=== PATIENT | female | born 1950 | race Caucasian/White ===

== ENCOUNTER 2017-09-18 18:34 | Inpatient (IN) | payer MEDICARE, OTHER ==
[2017-09-18 19:34] LABS: % EOSINOPHILS 0.6 % (0.0-5.0); LYMPHOCYTE ABSOLUTE 1.6 Th/cmm (1.5-3.0); MONOCYTE ABSOLUTE 0.5 Th/cmm (0.3-1.0); NEUTROPHILE ABSOLUTE 4.1 Th/cmm (1.8-8.0); RED CELL DISTRIBUTION WIDTH 12.7 % (11.5-20.0); WHITE BLOOD COUNT 6.2 Th/cmm (4.8-10.8)
[2017-09-18 19:36] LABS: % BASOPHILS 0.6 % (0.0-2.0); % LYMPHOCYTES 26.6 % (20.0-50.0); % MONOCYTES 8.5 % (2.0-10.0); % NEUTROPHILS 63.7 % (40.0-80.0); HEMATOCRIT 36.2 % (41.0-60); HEMOGLOBIN 12.6 gm/dL (12-16); MEAN CELL VOLUME 91.2 fl (81-100); MEAN CORPUSCULAR HEMOGLOBIN 31.6 pg (27.0-31.0); MEAN CORPUSCULAR HGB CONC 34.7 pg (28.0-36.0); MEAN PLATELET VOLUME 6.5 fl; PLATELET COUNT 301 Th/cmm (150-400); RED BLOOD COUNT 3.97 Mil/cmm (3.80-5.20)
--- NOTE | 2017-09-18 19:41 | ED Physician Chart ---
ED Chief Complaint/HPI - Patient Information Date Seen:: 09/18/17 Time Seen:: 19:00 Chief Complaint:: Agitation History of Present Illness:: onset x 2 days of agitation and aggressive behavior; no report of trauma, SIs, H /As, S/T, neck pain, C/P, SOB, cough, Abd. Pain, A/N/V/D/C, fever, chills, or urinary s/s Allergies:: Allergies Allergy/AdvReac Type Severity Reaction Status Date / Time No Known Allergies Allergy Verified 09/18/17 19:03 Vitals:: Vital Signs - 8 hr 09/18/17 19:03 Temp 98.4 F HR 69 RR 16 BP 140/60 O2 Sat % 100 Historian:: Patient, Family Member Review:: Nurse's Note Reviewed, Old Chart Reviewed ED Review of Systems - Review of Systems General/Constitutional: No fever, No chills, No weight loss, No weakness, No diaphoresis, No edema, No loss of appetite Skin: No skin lesions, No rash, No bruising Head: No headache, No light-headedness Eyes: No loss of vision, No pain, No diplopia ENT: No earache, No nasal drainage, No sore throat, No tinnitus Neck: No neck pain, No swelling, No thyromegaly, No stiffness, No mass noted Cardio Vascular: No chest pain, No palpitations, No PND, No orthopnea, No edema Pulmonary: No SOB, No cough, No sputum, No wheezing GI: No nausea, No vomiting, No diarrhea, No pain, No melena, No hematochezia, No constipation, No hematemesis G/U: No dysuria, No frequency, No hematuria, No nacturia Filling Room Operator: No vaginal discharge, No abnormal vaginal bleed, No contraction Musculoskeletal: No bone or joint pain, No back pain, No muscle pain Endocrine: No polyuria, No polydipsia Psychiatric: Prior psych history, Depression, Anxiety, No suicidal ideation, No homicidal ideation, No auditory hallucination, No visual hallucination Hematopoietic: No bruising, No lymphadenopathy Allergic/Immuno: No urticaria, No angioedema Neurological: No syncope, No focal symptoms, No weakness, No paresthesia, No headache, No seizure, No dizziness, Confusion, No vertigo ED Past Medical History - Past Medical History Obtainable: Yes Past Medical History: HTN, Dyslipidemia, Dementia Family History: HTN Social History: Non Smoker, No Alcohol, No Drug Use, Single, Care Facility Surgical History: None Psychiatricy History: Depression, Dementia Medication: Reviewed ED Physical Exam - Physical Examination General/Constitutional: Awake, Well-developed, well-nourished, Alert, No distress, GCS 15, Non-toxic appearing, Ambulatory Head: Atraumatic Eyes: Lids, conjuctiva normal, PERRL, EOMI Skin: Nl inspection, No rash, No skin lesions, No ecchymosis, Well hydrated, No lymphadenopathy ENMT: External ears, nose nl, TM canals nl, Nasal exam nl, Lips, teeth, gums nl , Oropharynx nl, Tonsils nl Neck: Nontender, Full ROM w/o pain, No JVD, No nuchal rigidity, No bruit, No mass, No stridor Respiratory: Nl effort/Exclusion, Clear to Auscultation, No Wheeze/Rhonchi/Rales Cardio Vascular: RRR, No murmur, gallop, rubs, NL S1 S2, Carotid/Femoral/Distal pulses equal bilaterally GI: No tenderness/rebounding/guarding, No organomegaly, No hernia, Normal BS's, Nondistended, No mass/bruits, No McBurney tenderness : No CVA tenderness Extremities: No tenderness or effusion, Full ROM, normal strength in all extremities, No edema, Normal digits & nails Neuro/Psych: Alert/oriented, DTR's symmetric, Normal sensory exam, Normal motor strength, Judgement/insight normal, Mood normal, Normal gait, No focal deficits Other Neuro/Psych comments:: + Psychomotor Agitation; Disoriented and Confused; no SIs; Mood/Affect: Blunt Misc: Normal back, No paraspinal tenderness ED Labs/Radiology/EKG Results - Lab Results Comments:: unremarkable - EKG Interpretations Rate & Rhythm: NSR Comments:: non-specific st-t changes ED Septic Shock - . Is Septic Shock (SBP<90, OR Lactate>4 mmol\L) present?: No - <6hrs of presentation: Vital Signs: Vital Signs - 8 hr 09/18/17 19:03 Temp 98.4 F HR 69 RR 16 BP 140/60 O2 Sat % 100 ED Reassessment (Disposition) - Reassessment Reassessment Condition:: Improved - Diagnosis Diagnosis:: Dx: Agitation; Depression; Anxiety; Medical Clearance; Psychosis; Bipolar Disorder - Aftercare/Follow up Instructions Aftercare/Follow-Up Instructions:: Counseled pt regarding lab results/diagnosis & need follow up, Counseled pt & family regarding lab results/diagnosis & need follow up - Patient Disposition Discharge/Transfer:: Acute Care w/in this hosp Admitted to:: [facility] Condition at Disposition:: Stable, Improved
[2017-09-18 19:51] LABS: ALB/GLOB RATIO 1.8 (1.0-1.8); ALBUMIN 4.4 gm/dL (3.7-5.3); ALKALINE PHOSPHATASE 55 U/L (34-104); ANION GAP 9.9 (7.0-16.0); BILIRUBIN,TOTAL 0.7 mg/dL (0.3-1.0); BUN - UREA NITROGEN 20 mg/dL (7-25); CALCIUM SERUM 9.6 mg/dL (8.6-10.3); CARBON DIOXIDE 29.9 mEq/L (21.0-31.0); CHLORIDE 100 mEq/L (98-107); CHOLESTEROL 274 mg/dL (<200); CREATININE - SERUM 0.7 mg/dL (0.6-1.2); GFR AFRICAN-AMERICAN > 60.0 ml/min (>90); GFR NON AFRICAN-AMERICAN > 60.0 ml/min; GLUCOSE 100 mg/dL (70-105); HDL -HIGH DENSITY LIPOPROTEIN 79 mg/dL (23-92); POTASSIUM SERUM 3.8 mEq/L (3.5-5.1); SGOT 26 U/L (13-39); SGPT/ALT 7 U/L (7-52); SODIUM SERUM 136 mEq/L (136-145); TOTAL PROTEIN,SERUM 6.8 gm/dL (6.0-8.3); TRIGLYCERIDES 48 mg/dL (<150)
[2017-09-18 19:57] LABS: ACETAMINOPHEN < 10.0 ug/mL (10.0-30.0); SALICYLATES (ASPIRIN) < 25.0 mg/L (30.0-100.0)
[2017-09-18 23:25] VITALS: BP 139/86
[2017-09-19] MEDS ORDERED: Pneumococcal Vaccine 0.5 mL Vial IM ONE (00:07)
[2017-09-19 19:37] LABS: A1C % 4.8 % (4.0-6.0)
--- NOTE | 2017-09-20 01:46 | Psychosocial Evaluation ---
DATE OF SERVICE: 09/19/2017 IDENTIFYING DATA: The patient is a 67-year-old woman admitted from [facility] for her increased agitation, wandering into other's rooms. CHIEF COMPLAINT: "I don't know why I have to be here." HISTORY OF PRESENT ILLNESS: This is the first psychiatric hospitalization to [facility] for this patient, who is reported to have been getting easily agitated and has been trying to getting into other people's rooms and trying to steal food. The patient is reported to be aggressive towards the other residents and the staff and trying to be redirected. The patient's sleep is noted to be poor. Appetite is also noted to be very poor. The patient is noted to be very confused at this time. The patient could not be contained at a lower level of care and hence the patient has to be brought over to the hospital. The patient's daughter happened to be there at the bedside at the time of the hospitalization. The patient at this time is noted to be extremely confused and is not able to provide much of information. PAST PSYCHIATRIC HISTORY: Details are not known. MEDICAL HISTORY: Physical examination is requested to be done by Dr. Chago Khan. SUBSTANCE ABUSE HISTORY: None. PHYSICAL OR SEXUAL ABUSE HISTORY: None. LEGAL PROBLEMS: None at this time. STRENGTH AND ASSETS: The patient is motivated. MENTAL STATUS EXAMINATION: The patient is a 67-year-old woman looking older than her stated age, superficially cooperative. Eye contact is poor. Mood is noted to be irritable. Affect is constricted. Insight and judgment at this time are noted to be very much impaired. Impulse control is noted to be poor. The patient is pacing on the unit. The patient has short-term as well as long-term memory deficits. The patient; however, is noted to be alert and awake. The patient's coping skills at this time are noted to be very poor. The patient needs to be redirected. The patient at the time of the evaluation has been on Zoloft 100 mg on a daily basis and that is going to be slowly decreased to 50 mg and the patient is going to be discontinued off of the risperidone and the patient is going to be placed on the Seroquel, which is going to be started at a lower dose and the patient is going to be monitored. DIAGNOSTIC IMPRESSION: AXIS IA: Psychotic disorder, not otherwise specified. AXIS IB. Dementia and behavioral change, secondary trait. AXIS II: None. AXIS III: As per Dr. Chago Khan. IMMEDIATE TREATMENT PLAN: The patient is going to be closely monitored with the change in the medications. The patient is going to be encouraged to participate in the groups and verbalize the concerns. Once stabilized, the patient is going to be discharged to [facility] to be followed up on an outpatient basis. JOB# [id number]
--- NOTE | 2017-09-20 08:49 | Progress Notes ---
DATE: 09/20/2017 SUBJECTIVE: Staff was spoken to. The patient is interviewed. Mood is noted to be irritable. Affect is constricted. The patient's insight and judgment are noted to be still impaired. Impulse control is noted to be poor. Coping skills are also noted to be very poor. The patient is pacing most of the time on the unit. The patient is reporting that she was not able to sleep and has not had anything to eat. The patient is very confused at this time. ASSESSMENT: The patient is still paranoid and depressed. PLAN: To continue the patient with the supportive therapy, closely monitor for her aggressive behavior. JOB# [id number]
--- NOTE | 2017-09-21 12:13 | Consultation ---
DATE OF CONSULTATION: 09/20/2017 REFERRING PHYSICIAN: Jozef Lanza MD TYPE OF CONSULTATION: Psychology. HISTORY OF PRESENT ILLNESS: The patient is a 67-year-old female. The patient is admitted from [facility]. The following is by record review and patient self report. The patient is being admitted due to increased agitation and restlessness as well as poor redirectable behavior. According to the staff at the patient's facility, the patient had become aggressive towards other residents. The patient's daughter is very involved in this patient's care. The patient presents as confused, but was able to respond to the clinical interview questions. The patient denied any suicidal ideation, plan or intention. PAST MEDICAL HISTORY: Please see history and physical by Dr. Chago Khan. PAST PSYCHIATRIC HISTORY: Records are unavailable at the time of this clinical interview. SUBSTANCE ABUSE HISTORY: The patient denies any history. PSYCHOSOCIAL HISTORY: The patient's daughter is very involved in this patient's care. The patient is a resident of a half-way facility. The patient denied any history of physical or sexual abuse. The patient denies any current legal problems. The patient did not answer questions about occupational or educational history or buddhist affiliation. The patient expects to return to her placement. MENTAL STATUS EXAMINATION: The patient appears to be her stated age. Attitude is superficially cooperative. Eye contact is poor. Speech is spontaneous. Mood is irritable. Affect is constricted. The patient's thought process shows to be confused. The patient denied any suicidal ideation, plan or intention. The patient denied any auditory or visual hallucinations. The patient's behavior has been pacing on the unit according to staff. Impulse control is limited. Concentration is poor. Sensorium is alert and oriented to person and place. The patient needs constant redirection. The patient did not participate in the memory assessment. The patient did not participate in the interpretation of proverbs. Insight is poor. Judgment is compromised. DIAGNOSTIC IMPRESSION: AXIS I: 1. Psychotic disorder, not otherwise specified. 2. Dementia with behavioral disturbance. AXIS II: Deferred. AXIS III: Per Dr. Chago Khan. TREATMENT PLAN: The patient has been seen by Dr. Lanza for psychiatric evaluation and for the management of the patient's psychotropic medications. According to the record, the patient's Zoloft has been decreased to 50 mg and the patient will be discontinued off the risperidone and titrated on Seroquel. We will provide supportive psychotherapy. We will encourage the patient to verbalize concerns versus verbally acting out. We will provide coping strategies for phase of life issues. We will provide reality orientation, reality integration. We will encourage the patient to be able to demonstrate emotional and self-regulation prior to discharge. We will continue to provide motivational enhancement for the patient to become compliant and stay compliant with all aspects of her care and treatment as well as follow through with staff direction. Thank you Dr. Lanza for this consult and the opportunity to participate in this patient's care. JOB# [id number] RAMIN
--- NOTE | 2017-09-21 18:59 | Progress Notes ---
DATE: 09/21/2017 SUBJECTIVE: Staff was spoken to. The patient is interviewed. Mood is noted to be dysphoric. The patient is confused. The patient is ____ most of the time on the unit. Insight and judgment are noted to be very much impaired. Impulse control is noted to be poor. Coping skills are noted to be very poor. The patient needs to be redirected constantly. The patient has been currently on 12.5 mg of the Seroquel, which is going to be increased to 25 mg and the patient is going to be followed up with the supportive therapy. JOB# [id number]
--- NOTE | 2017-09-22 15:46 | Progress Notes ---
DATE: 09/22/2017 PSYCHIATRIC PROGRESS NOTE SUBJECTIVE: Staff was spoken to. The patient is interviewed. Mood is noted to be dysphoric. Coping skills are noted to be poor. . The patient is very dysphoric today and has not been able to give much of information. The patient is pacing most of the time on the unit. The patient has been on sertraline 50 mg and Seroquel 25 mg at bedtime. The patient is going to be closely monitored with these medications, the patient also has been having difficult time with the memory and the patient is going to be encouraged to participate in the groups. ASSESSMENT: The patient is still depressed and demented. PLAN: To continue the patient with the supportive therapy and followup. [facility]# [id number]
[2017-09-22 18:49] LABS: URINE SOURCE RANDOM
[2017-09-22 18:50] LABS: URINE BILIRUBIN NEGATIVE (NEGATIVE); URINE BLOOD NEGATIVE (NEGATIVE); URINE GLUCOSE (UA) NEGATIVE (NEGATIVE); URINE KETONE NEGATIVE (NEGATIVE); URINE LEUKOCYTE ESTERASE NEGATIVE (NEGATIVE); URINE NITRATE NEGATIVE (NEGATIVE); URINE PROTEIN NEGATIVE (NEGATIVE); URINE UROBILINOGEN 0.2 E.U./dL (0.2 - 1.0)
[2017-09-22 18:56] LABS: URINE CLARITY CLEAR (CLEAR); URINE COLOR YELLOW
[2017-09-22 18:57] LABS: URINE MICROSCOPIC INDICATED? NO
--- NOTE | 2017-09-23 23:43 | Consultation ---
DATE OF CONSULTATION: INTERNAL MEDICINE CONSULTATION REASON FOR CONSULTATION: Hyperlipidemia, psychosis, dementia, chronic insomnia. HISTORY OF PRESENTING ILLNESS: A 67-year-old female, very aggressive behavior at a group home facility and stealing the food from other residents, so sent for further evaluation. The patient is currently in bed, family at bedside, grandson. The patient denies any headache, no chest pain, no abdominal pain. Denies any hunger at present time, "when I get hungry, I will eat." Denies any nausea, vomiting, or diarrhea. Denies leg swelling or joint swelling. No rashes. The patient denies almost any symptoms and stating that she is fine. PAST MEDICAL HISTORY: Hyperlipidemia, dementia, psychosis. ALLERGIES: None. MEDICATIONS: Currently receiving includes Aricept 10 mg once a day, Ativan 0.5 q. 4 p.r.n., Keflex 500 four times a day for 1 week, Seroquel 25 mg at bedtime, Zoloft 50 once a day, Ambien 5 mg once a day. SOCIAL HISTORY: Noncontributory. REVIEW OF SYSTEMS: See the history of presenting illness. PHYSICAL EXAMINATION: VITAL SIGNS: Height 1.68 meters, weight 58.9 kg, BMI 21, temperature 96.8, pulse 60, respiratory rate 19, blood pressure 113/59, oxygen saturation 96%. GENERAL: Well built, well developed, in no acute distress. HEENT: No icterus. No pallor. Mucosa is moist. SKIN: Turgor is normal. NECK: Supple. No JVD, bruit, or lymphadenopathy. LUNGS: Clear to auscultation. CARDIOVASCULAR: S1, S2 normal limits. No murmur, gallop, or bruit. ABDOMEN: Soft, nontender. No hepatosplenomegaly. Bowel sounds active. No CVA tenderness. EXTREMITIES: Unremarkable. CENTRAL NERVOUS SYSTEM: Cranial nerves intact, nonfocal. MUSCULOSKELETAL: No clubbing, cyanosis, or synovitis. LABORATORY TESTS: RPR is negative. Serum alcohol level not detected. Serum salicylate and acetaminophen level is not detected. Urinalysis: pH 6.0, specific gravity 1.030, leukocyte esterase negative. WBCs 6000, hemoglobin 12.6, MCV 91, platelet count of 301,000, neutrophils 64. Sodium 136, potassium 3.8, chloride 100, bicarb 29, BUN 20, creatinine 0.7, glucose of 100, calcium of 9.6. Liver panel unremarkable. Albumin normal at 4.4. TSH normal at 1.5, hemoglobin A1c normal at 4.8. Cholesterol is elevated at 274, LDL 174, HDL 79, triglycerides 48. ASSESSMENT AND PLAN: 1. Hyperlipidemia. We will start the patient on Pravachol 20 mg p.o. at bedtime and low-cholesterol diet and monitor lipid panel in 3-6 months. 2. 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 3. Psychosis. Further plan per Dr. Lanza. Currently, the patient on Seroquel, Zoloft, Ambien, Aricept, and Ativan as mentioned earlier. We will follow with you Dr. Lanza. JOB# [id number]
--- NOTE | 2017-09-24 05:16 | Progress Notes ---
DATE: 09/23/2017 SUBJECTIVE: Staff was spoken to. The patient is interviewed. Mood is noted to be irritable. Affect is constricted. The patient is pacing most of the time. The patient has been very intrusive today. The patient has been feeling very weak and staff was requested to give fluids for this patient. The patient has been not making any sense and going on a tangent. ASSESSMENT: The patient is still depressed, psychotic and demented. PLAN: To continue the patient with the supportive therapy and follow up. JOB# [id number]
[2017-09-24] MEDS ORDERED: Probiotic Screen MC PRN (09:15)
--- NOTE | 2017-09-25 02:41 | Progress Notes ---
DATE: 09/24/2017 PSYCHIATRIC PROGRESS NOTE SUBJECTIVE: Staff was spoken to. The patient is interviewed. Mood is noted to be irritable. Affect is constricted. The patient has been dysphoric and pacing most of the time on the unit. Insight and judgment at this time are noted to be still impaired. Impulse control seems to be limited. ASSESSMENT: The patient is still paranoid, depressed and confused. PLAN: To continue the patient with the supportive therapy and current medications. I encouraged the patient to verbalize the concerns rather than to act out. The patient is not ready to be discharged to a lower level of care yet. JOB# [id number]
[2017-09-25] MEDS: Lactobacillus Rhamnosus GG 15 Billion CFU CAP.SPRINK PO SCH (08:29)
--- NOTE | 2017-09-25 11:54 | Progress Notes ---
DATE: 09/25/2017 SUBJECTIVE: Staff was spoken to. The patient is interviewed. Mood is noted to be dysphoric. Coping skills are noted to be poor. The patient has been pacing on the unit. Insight and judgment at this time are noted to be still impaired. The patient has been pacing most of the time on the unit. The patient is currently on Seroquel and Zoloft and the dose of the Zoloft is going to be changed to twice a day in view of her paranoia and the patient is going to be followed up. ASSESSMENT: The patient is still depressed, psychotic and demented. PLAN: To continue the patient with the current medications and followup. JOB# [id number]
[2017-09-26] MEDS: Lactobacillus Rhamnosus GG 15 Billion CFU CAP.SPRINK PO SCH (10:11)
--- NOTE | 2017-09-27 02:46 | Progress Notes ---
DATE: 09/26/2017 SUBJECTIVE: Staff was spoken to. The patient is interviewed. Mood is noted to be irritable. Affect is constricted. The patient's insight and judgment at this time are noted to be still impaired. The patient is confused. The patient is stating that everything is taking care of her and the only thing she has to do is she has to leave this place. The patient is not making much sense. ASSESSMENT: The patient is still psychotic and demented. PLAN: To continue the patient with the supportive therapy and followup. JOB# [id number]
[2017-09-27] MEDS: Lactobacillus Rhamnosus GG 15 Billion CFU CAP.SPRINK PO SCH (09:14)
--- NOTE | 2017-09-28 04:59 | Progress Notes ---
DATE: 09/27/2017 SUBJECTIVE: Staff was spoken to. The patient is interviewed. Mood is noted to be ____ coping skills are noted to be fair, but the patient continues to be demented and paranoia is noted. No aggressive behavior is noted. The patient could be redirectable at this time. ASSESSMENT: The patient is stabilizing. PLAN: To discharge the patient today for followup on outpatient basis. JOB# [id number]
--- NOTE | 2017-09-28 09:33 | Discharge Summary ---
DATE OF DISCHARGE: 09/27/2017 IDENTIFYING DATA: The patient is a 67-year-old woman admitted from [facility] for increased agitation and wandering into others' rooms. CHIEF COMPLAINT: "I do not know why I have to be here." DIAGNOSES AT THE TIME OF ADMISSION: AXIS I: Psychotic disorder, not otherwise specified; dementia and behavioral change. AXIS II: None. AXIS III: As per Dr. Chago Khan. HISTORY OF PRESENT ILLNESS: Please refer to 09/19/2017 dictation done by me. Physical examination was done by Dr. Chago Khan and is noted to be significant for hyperlipidemia. HOSPITAL COURSE AND RESPONSE TO TREATMENT: The patient has been observed on inpatient unit, provided with supportive psychotherapy. The patient has been encouraged to participate in the groups and verbalize the concerns. In view of her psychosis, the patient has been placed on the Seroquel, which was increased gradually to 25 mg b.i.d. The patient has been placed on sertraline 50 mg in the morning. With these medications, the patient was observed and was noted to be doing fairly well. The patient was discharged on 09/27/2017 with recommendation that she is going to be seeking treatment on an outpatient basis. MENTAL STATUS EXAMINATION: At the time of discharge, the patient's mood is noted to be irritable. Affect is constricted. Insight and judgment are improving. Impulse control seemed to be fair. The patient has been noted to have short-term as well as long-term memory deficits, but the patient tends to be perseverative, but the patient is not presenting with any threats to harm self or others. DIAGNOSES AT THE TIME OF THE DISCHARGE: AXIS I: 1. Psychotic disorder, not otherwise specified. 2. Dementia and behavioral changes. AXIS II: None. AXIS III: Hyperlipidemia. AFTERCARE PLAN: The patient is discharged for followup on outpatient basis. JOB# [id number]
== END 2017-09-27 17:30 | DRG 885 ==
LOC: ER 18:34 → GERO2 20:46
PROVIDERS: ADMIT Psychiatry & Neurology Psychiatry; ATTEND Psychiatry & Neurology Psychiatry
DX: F29 Unspecified psychosis not due to a substance or known physiological condition (principal); F02.81 Dementia in other diseases classified elsewhere, unspecified severity, with behavioral disturbance; I10 Essential (primary) hypertension; E78.5 Hyperlipidemia, unspecified; F51.04 Psychophysiologic insomnia; G30.9 Alzheimer's disease, unspecified; Z82.49 Family history of ischemic heart disease and other diseases of the circulatory system
CPT/HCPCS: 36415-UA; 80053-TC; 80061-TC; 80320-TC; 80329-TC; 81003-TC; 83036-90; 84443-TC; 84484-TC; 85025-TC; 86592-TC; 90732; 93005; G0410; J2060; Z7610

== ENCOUNTER 2017-10-08 22:08 | Inpatient (IN) | payer MEDICARE, OTHER ==
--- NOTE | 2017-10-08 22:40 | ED Physician Chart ---
ED Chief Complaint/HPI - Patient Information Date Seen:: 10/08/17 Time Seen:: 22:39 Chief Complaint:: Aggressiveness History of Present Illness:: 67 yo female was brought from SNF to ER for evaluation of increased agitation and aggressiveness towards other patients at SNF. Patient is calm and following command at ER. Patient was recently hospitalized for similar symptoms at [facility] geropsych unit. Allergies:: Allergies Allergy/AdvReac Type Severity Reaction Status Date / Time No Known Allergies Allergy Verified 10/08/17 22:20 Vitals:: Vital Signs - 8 hr 10/08/17 22:10 Temp 97.7 F HR 59 RR 18 BP 137/84 O2 Sat % 97 ED Review of Systems - Review of Systems General/Constitutional: No fever Skin: No bruising Head: No headache Eyes: No pain ENT: No nasal drainage Neck: No neck pain Cardio Vascular: No chest pain Pulmonary: No cough GI: No nausea, No vomiting Musculoskeletal: No bone or joint pain Psychiatric: Prior psych history Neurological: No focal symptoms ED Past Medical History - Past Medical History Past Medical History: Dyslipidemia, Dementia, Other (UTI) Social History: Non Smoker, No Alcohol, No Drug Use Psychiatricy History: Depression, Other (psychosis, anxiety) Family Medical History - Family Member Mother History Unknown: Yes Ethnicity: Unknown Living Status: Unknown Hx Family Cancer: (unknown) Hx Family Coronary Artery Disease: (unknown) Hx Family Congestive Heart Failure: (unknown) Hx Family Hypertension: (unknown) Hx Family Stroke: (unknown) Hx Family Diabetes: (unknown) Hx Family Seizures: (unknown) Hx Family Dementia: (unknown) Hx Family AIDS: (unknown) Hx Family COPD: (unknown) Hx Family Hepatitis: (unknown) Hx Family Psychiatric Problems: (unknown) Hx Family Tuberculosis: (unknown) ED Physical Exam - Physical Examination General/Constitutional: Awake, Alert Head: Atraumatic Eyes: PERRL Skin: No ecchymosis ENMT: Nasal exam nl Neck: No nuchal rigidity Respiratory: No Wheeze/Rhonchi/Rales Cardio Vascular: RRR, No murmur, gallop, rubs, NL S1 S2 GI: No tenderness/rebounding/guarding Extremities: normal strength in all extremities Other Neuro/Psych comments:: Alert, oriented to self and place ED Labs/Radiology/EKG Results - Lab Results Results: Laboratory Last Values WBC 6.0 Th/cmm (4.8-10.8) 10/08/17 22:50 RBC 4.08 Mil/cmm (3.80-5.20) 10/08/17 22:50 Hgb 12.8 gm/dL (12-16) 10/08/17 22:50 Hct 37.5 % (41.0-60) L 10/08/17 22:50 MCV 91.9 fl (81-100) 10/08/17 22:50 MCH 31.4 pg (27.0-31.0) H 10/08/17 22:50 MCHC Differential 34.1 pg (28.0-36.0) 10/08/17 22:50 RDW 13.0 % (11.5-20.0) 10/08/17 22:50 Plt Count 264 Th/cmm (150-400) 10/08/17 22:50 MPV 6.8 fl 10/08/17 22:50 Neutrophils % 66.1 % (40.0-80.0) 10/08/17 22:50 Lymphocytes % 27.3 % (20.0-50.0) 10/08/17 22:50 Monocytes % 5.5 % (2.0-10.0) 10/08/17 22:50 Eosinophils % 1.0 % (0.0-5.0) 10/08/17 22:50 Basophils % 0.1 % (0.0-2.0) 10/08/17 22:50 Sodium 139 mEq/L (136-145) 10/08/17 22:50 Potassium 3.6 mEq/L (3.5-5.1) 10/08/17 22:50 Chloride 105 mEq/L (98-107) 10/08/17 22:50 Carbon Dioxide 28.5 mEq/L (21.0-31.0) 10/08/17 22:50 Anion Gap 9.1 (7.0-16.0) 10/08/17 22:50 BUN 16 mg/dL (7-25) 10/08/17 22:50 Creatinine 0.7 mg/dL (0.6-1.2) 10/08/17 22:50 Est GFR ( Amer) > 60.0 ml/min (>90) 10/08/17 22:50 Est GFR (Non-Af Amer) > 60.0 ml/min 10/08/17 22:50 BUN/Creatinine Ratio 22.9 10/08/17 22:50 Glucose 96 mg/dL (70-105) 10/08/17 22:50 Calcium 9.5 mg/dL (8.6-10.3) 10/08/17 22:50 Magnesium 2.2 mg/dL (1.9-2.7) 10/08/17 22:50 Total Bilirubin 0.5 mg/dL (0.3-1.0) 10/08/17 22:50 AST 21 U/L (13-39) 10/08/17 22:50 ALT 9 U/L (7-52) 10/08/17 22:50 Alkaline Phosphatase 58 U/L (34-104) 10/08/17 22:50 Troponin I < 0.01 ng/mL (0.01-0.05) L 10/08/17 22:50 B-Natriuretic Peptide 117.0 pg/mL (5.0-100.0) H 10/08/17 22:50 Total Protein 6.4 gm/dL (6.0-8.3) 10/08/17 22:50 Albumin 4.2 gm/dL (3.7-5.3) 10/08/17 22:50 Globulin 2.2 gm/dL 10/08/17 22:50 Albumin/Globulin Ratio 1.9 (1.0-1.8) H 10/08/17 22:50 - Radiology Results Results: CXR: increased lung markings, no focal consolidation ED Assessment - Assessment General Assessment: Hyperlipidemia Dementia Psychosis ED Septic Shock - . Is Septic Shock (SBP<90, OR Lactate>4 mmol\L) present?: No - <6hrs of presentation: Vital Signs: Vital Signs - 8 hr 10/08/17 22:10 Temp 97.7 F HR 59 RR 18 BP 137/84 O2 Sat % 97 ED Reassessment (Disposition) - Reassessment Reassessment Condition:: Unchanged - Patient Disposition Discharge/Transfer:: Nathaniel w/in this hosp Admitting Medical Physician:: Shelli Cortez Admitting Psych Physician:: Jozef Lanza ED Discharge Plan - Patient Disposition Admit/Discharge/Transfer: Other Care w/in this hosp Condition at Disposition: Guarded
[2017-10-08 23:06] LABS: % BASOPHILS 0.1 % (0.0-2.0); % LYMPHOCYTES 27.3 % (20.0-50.0); % MONOCYTES 5.5 % (2.0-10.0); % NEUTROPHILS 66.1 % (40.0-80.0); EOSINOPHILE ABSOLUTE 0.1 Th/cmm (0.1-0.4); HEMATOCRIT 37.5 % (41.0-60); HEMOGLOBIN 12.8 gm/dL (12-16); LYMPHOCYTE ABSOLUTE 1.6 Th/cmm (1.5-3.0); MEAN CELL VOLUME 91.9 fl (81-100); MEAN CORPUSCULAR HEMOGLOBIN 31.4 pg (27.0-31.0); MEAN CORPUSCULAR HGB CONC 34.1 pg (28.0-36.0); MEAN PLATELET VOLUME 6.8 fl; MONOCYTE ABSOLUTE 0.3 Th/cmm (0.3-1.0); PLATELET COUNT 264 Th/cmm (150-400); RED BLOOD COUNT 4.08 Mil/cmm (3.80-5.20)
[2017-10-08 23:23] LABS: ALB/GLOB RATIO 1.9 (1.0-1.8); ALBUMIN 4.2 gm/dL (3.7-5.3); ALKALINE PHOSPHATASE 58 U/L (34-104); ANION GAP 9.1 (7.0-16.0); BILIRUBIN,TOTAL 0.5 mg/dL (0.3-1.0); BUN - UREA NITROGEN 16 mg/dL (7-25); CALCIUM SERUM 9.5 mg/dL (8.6-10.3); CARBON DIOXIDE 28.5 mEq/L (21.0-31.0); CHLORIDE 105 mEq/L (98-107); CREATININE - SERUM 0.7 mg/dL (0.6-1.2); GFR AFRICAN-AMERICAN > 60.0 ml/min (>90); GFR NON AFRICAN-AMERICAN > 60.0 ml/min; GLUCOSE 96 mg/dL (70-105); MAGNESIUM 2.2 mg/dL (1.9-2.7); POTASSIUM SERUM 3.6 mEq/L (3.5-5.1); SGOT 21 U/L (13-39); SGPT/ALT 9 U/L (7-52); SODIUM SERUM 139 mEq/L (136-145); TOTAL PROTEIN,SERUM 6.4 gm/dL (6.0-8.3)
[2017-10-09] MEDS ORDERED: Magnesium Hydroxide (MOM) 30 mL UDC PO PRN (02:23)
[2017-10-09] MEDS ORDERED: Maalox 30 mL Cup PO PRN (02:23)
[2017-10-09 03:10] VITALS: BP 114/62
--- NOTE | 2017-10-09 08:06 | Diagnostic Imaging Report ---
CHEST X-RAY: AP view INDICATION: Shortness of breath COMPARISON: None FINDINGS: Increased interstitial lung markings are noted. There is no focal consolidation or pleural effusions The heart is normal in size. Old left rib fractures are noted. IMPRESSION: Increased interstitial lung markings suggestive of chronic lung changes. No focal consolidation or evidence of sergio CHF.
[2017-10-09] MEDS ORDERED: Non-Formulary Item 1 EA (Zinc Sulfate [Zinc Sulfate] 220 MG) PO SCH (09:00)
[2017-10-09] MEDS ORDERED: Non-Formulary Item 1 EA (Amino Acids/Protein Hydrolys [Pro-Stat Awc Liquid] 30 ML) PO SCH (09:00)
[2017-10-09] MEDS: Multivitamin Tab PO SCH (18:16)
[2017-10-09] MEDS: Lactobacillus Rhamnosus GG 15 Billion CFU CAP.SPRINK PO SCH (18:16)
--- NOTE | 2017-10-10 03:24 | Psychosocial Evaluation ---
DATE OF SERVICE: 10/09/2017 PSYCHIATRIC EVALUATION AND MENTAL STATUS EXAMINATION IDENTIFYING DATA: The patient is a 67-year-old woman, resident of a nursing home facility. Information is obtained by directly interviewing the patient as well as reviewing the admission papers and they are reliable. The patient has been admitted over here for acute agitation. The patient was discharged recently from the hospital and was placed in [facility]. The patient is reported to have been getting easily agitated and aggressive towards other patients at the nursing home facility. The patient could not be redirected and hence, the patient has to be brought over here for stabilization. PAST PSYCHIATRIC HISTORY: Please note that the patient had been hospitalized here in the month of August and has been stabilized on Seroquel and Zoloft and has been discharged for followup on outpatient basis. MEDICAL HISTORY: Physical examination is requested to be done by Dr. Cortez. SUBSTANCE ABUSE HISTORY: None. PHYSICAL AND SEXUAL ABUSE HISTORY: None. LEGAL PROBLEMS: None at this time. STRENGTH AND ASSETS: The patient is motivated. MENTAL STATUS EXAMINATION: The patient is a 67-year-old woman, looking her stated age, thin built, superficially cooperative. The patient is not making any sense. The patient is very intrusive and has been pacing on the unit. The patient needs to be redirected. Short and long-term memory are noted to be very much impaired. The patient has been going on a tangent. The patient is confabulating. The patient has no insight into her illness. The patient is pacing on the unit at this time. The patient is reported to be very aggressive and agitated and has been trying to hurt other patients and hence, the patient has to be brought over here for stabilization since she was not able to be taken care of at a lower level of care. The patient's behavior is a clear danger to others. The patient's short and long-term memory are noted to be very poor. DIAGNOSTIC IMPRESSION: AXIS I: A. Psychosis, not otherwise specified. B. Dementia and behavioral change, secondary trait. AXIS II: None. AXIS III: As per Dr. Cortez. IMMEDIATE TREATMENT PLAN: The patient is going to be observed on the inpatient unit provided with supportive psychotherapy. The patient is going to be restarted on the medications. ESTIMATED LENGTH OF STAY: 3-5 days. DISCHARGE CRITERIA: When the patient is no longer a threat to self or others and be able to cope up with the stress. JOB# [id number]
[2017-10-10] MEDS: Lactobacillus Rhamnosus GG 15 Billion CFU CAP.SPRINK PO SCH (10:00)
[2017-10-10] MEDS: Multivitamin Tab PO SCH (10:01)
--- NOTE | 2017-10-10 14:20 | Progress Notes ---
DATE: 10/10/2017 SUBJECTIVE: Staff was spoken to. The patient is interviewed. Mood is noted to be irritable. Affect is constricted. The patient's insight and judgment are noted to be impaired. Impulse control is noted to be poor. The patient is grossly psychotic and is not able to contract for safety. ASSESSMENT: The patient is going to be still grossly psychotic. PLAN: To continue the patient on the Seroquel and sertraline and follow the patient up. JOB# [id number]
--- NOTE | 2017-10-10 16:44 | History & Physical ---
ADMIT DATE: 10/09/2017 HISTORY OF PRESENT ILLNESS: The patient came because of the aggressiveness. The patient came from the intermediate because she was agitated and very aggressive. The patient had a ER consultation and then ER cleared up for admission to [facility]. The patient is known to have history of hyperlipidemia and dementia in the past. PHYSICAL EXAMINATION: GENERAL: The patient otherwise normal. HEAD: Normal. ENT: Normal. NECK: Supple, nontender. LUNGS: Clear. CARDIOVASCULAR SYSTEM: S1, S2 heard. ABDOMEN: Soft. Bowel sounds are heard. CENTRAL NERVOUS SYSTEM: The patient was confused. DIAGNOSES: Psychosis, agitation, hyperlipidemia, dementia. PLAN: I will follow her medically. I will follow along with Dr. Lanza. JOB# [id number]
[2017-10-11] MEDS: Multivitamin Tab PO SCH (08:45)
[2017-10-11] MEDS: Lactobacillus Rhamnosus GG 15 Billion CFU CAP.SPRINK PO SCH (08:45)
--- NOTE | 2017-10-11 22:19 | General Progress Note ---
Subjective - Review of Systems Service Date: 10/11/17 Subjective: awake confused Objective - Results Result Diagrams: 10/08/17 22:50 10/08/17 22:50 Recent Labs: Laboratory Last Values WBC 6.0 Th/cmm (4.8-10.8) 10/08/17 22:50 RBC 4.08 Mil/cmm (3.80-5.20) 10/08/17 22:50 Hgb 12.8 gm/dL (12-16) 10/08/17 22:50 Hct 37.5 % (41.0-60) L 10/08/17 22:50 MCV 91.9 fl (81-100) 10/08/17 22:50 MCH 31.4 pg (27.0-31.0) H 10/08/17 22:50 MCHC Differential 34.1 pg (28.0-36.0) 10/08/17 22:50 RDW 13.0 % (11.5-20.0) 10/08/17 22:50 Plt Count 264 Th/cmm (150-400) 10/08/17 22:50 MPV 6.8 fl 10/08/17 22:50 Neutrophils % 66.1 % (40.0-80.0) 10/08/17 22:50 Lymphocytes % 27.3 % (20.0-50.0) 10/08/17 22:50 Monocytes % 5.5 % (2.0-10.0) 10/08/17 22:50 Eosinophils % 1.0 % (0.0-5.0) 10/08/17 22:50 Basophils % 0.1 % (0.0-2.0) 10/08/17 22:50 Sodium 139 mEq/L (136-145) 10/08/17 22:50 Potassium 3.6 mEq/L (3.5-5.1) 10/08/17 22:50 Chloride 105 mEq/L (98-107) 10/08/17 22:50 Carbon Dioxide 28.5 mEq/L (21.0-31.0) 10/08/17 22:50 Anion Gap 9.1 (7.0-16.0) 10/08/17 22:50 BUN 16 mg/dL (7-25) 10/08/17 22:50 Creatinine 0.7 mg/dL (0.6-1.2) 10/08/17 22:50 Est GFR ( Amer) > 60.0 ml/min (>90) 10/08/17 22:50 Est GFR (Non-Af Amer) > 60.0 ml/min 10/08/17 22:50 BUN/Creatinine Ratio 22.9 10/08/17 22:50 Glucose 96 mg/dL (70-105) 10/08/17 22:50 Calcium 9.5 mg/dL (8.6-10.3) 10/08/17 22:50 Magnesium 2.2 mg/dL (1.9-2.7) 10/08/17 22:50 Total Bilirubin 0.5 mg/dL (0.3-1.0) 10/08/17 22:50 AST 21 U/L (13-39) 10/08/17 22:50 ALT 9 U/L (7-52) 10/08/17 22:50 Alkaline Phosphatase 58 U/L (34-104) 10/08/17 22:50 Troponin I < 0.01 ng/mL (0.01-0.05) L 10/08/17 22:50 B-Natriuretic Peptide 117.0 pg/mL (5.0-100.0) H 10/08/17 22:50 Total Protein 6.4 gm/dL (6.0-8.3) 10/08/17 22:50 Albumin 4.2 gm/dL (3.7-5.3) 10/08/17 22:50 Globulin 2.2 gm/dL 10/08/17 22:50 Albumin/Globulin Ratio 1.9 (1.0-1.8) H 10/08/17 22:50 - Physical Exam Vitals and I&O: Vital Signs Temp 98.1 F 10/11/17 19:57 Pulse 80 10/11/17 19:57 Resp 18 10/11/17 19:57 BP 106/61 10/11/17 19:57 Pulse Ox 99 10/11/17 19:57 Intake & Output 10/11/17 10/11/17 10/12/17 06:59 18:59 06:59 Intake Total 500 Balance 500 Intake: Oral 500 Other: # Voids 3 # Bowel Movements 0 Active Medications: Current Medications Acetaminophen (Tylenol) 650 mg PO Q4HR PRN PRN Reason: Mild Pain / Temp above 100 Stop: 12/08/17 02:22 Al Hydrox/Mg Hydrox/Simethicone (Maalox) 30 ml PO Q4HR PRN PRN Reason: GI DISTRESS Stop: 12/08/17 02:22 Ascorbic Acid (Vitamin C) 500 mg PO DAILY ZEUS Stop: 12/08/17 08:59 Last Admin: 10/11/17 08:45 Dose: 500 mg Donepezil HCl (Aricept) 10 mg PO HS ZEUS Stop: 12/08/17 20:59 Last Admin: 10/11/17 21:33 Dose: 10 mg Lactobacillus Rhamnosus (Culturelle 15b) 1 each PO DAILY ZEUS Stop: 12/08/17 08:59 Last Admin: 10/11/17 08:45 Dose: 1 each Lorazepam (Ativan) 0.5 mg PO Q4HR PRN; Protocol PRN Reason: Anxiety/agitation Stop: 11/08/17 02:22 Last Admin: 10/10/17 17:39 Dose: 0.5 mg Magnesium Hydroxide (Milk Of Magnesia) 30 ml PO HS PRN PRN Reason: Constipation Multivitamins/Vitamin C (Theragran) 1 tab PO DAILY ZEUS Stop: 12/08/17 08:59 Last Admin: 10/11/17 08:45 Dose: 1 tab Quetiapine Fumarate (Seroquel) 25 mg PO BID [facility]; Protocol Stop: 12/08/17 08:59 Last Admin: 10/11/17 16:52 Dose: 25 mg Sertraline HCl (Zoloft) 50 mg PO DAILY [facility]; Protocol Stop: 12/08/17 08:59 Last Admin: 10/11/17 08:46 Dose: 50 mg Simvastatin (Zocor) 10 mg PO HS [facility]; Protocol Stop: 12/08/17 20:59 Last Admin: 10/11/17 21:33 Dose: 10 mg Zinc Sulfate (Zinc Sulfate) 220 mg PO DAILY [facility]EUS Stop: 12/08/17 08:59 Last Admin: 10/11/17 08:45 Dose: 220 mg Zolpidem Tartrate (Ambien) 5 mg PO HS PRN PRN Reason: Insomnia Stop: 12/08/17 02:22 Last Admin: 10/10/17 21:00 Dose: 5 mg General: Alert, No acute distress HEENT: Atraumatic Neck: Supple Cardiovascular: Regular rate, Normal S1 Lungs: Clear to auscultation Abdomen: Bowel sounds Assessment/Plan - Assessment Assessment: agitation dementia hypercholesteremia
--- NOTE | 2017-10-12 01:56 | Consultation ---
DATE OF CONSULTATION: 10/11/2017 REFERRING PHYSICIAN: Jozef Lanza MD TYPE OF CONSULTATION: Psychology. HISTORY OF PRESENT ILLNESS: The patient is a 67-year-old female. The patient is a resident of a half-way facility [facility]. The patient is known to this advertising copy writer from a previous hospitalization. The following is by record review and by the patient's self-report. The patient was discharged from this hospital to [facility]. According to the staff, the patient was easily agitated and aggressive towards other residents. The patient was unredirectable and therefore readmitted here for stabilization. The patient denied any suicidal ideation or any homicidal ideation, plan or intention. PAST MEDICAL HISTORY: Please see history and physical by Dr. Cortez. PAST PSYCHIATRIC HISTORY: The patient has had multiple previous hospitalizations. The patient's most recent admission at [facility] was in 08/2017. The patient is seen by a psychiatrist and possibly by a psychologist at her half-way facility. SUBSTANCE ABUSE HISTORY: None. PSYCHOSOCIAL HISTORY: The patient did not answer any of the questions about occupational history, educational history, evangelical affiliation, legal problems or physical or sexual abuse history. MENTAL STATUS EXAMINATION: The patient appears to be her stated age. The patient's attitude is superficially cooperative. Eye contact is poor. Speech is rambling. The patient is not making any sense. The patient's mood is irritable. Affect is constricted. The patient's behavior is intrusive on the unit. The patient is pacing and needs constant redirection. The patient did not participate in the memory assessment. Impulse control is poor. Concentration is poor. Sensorium is alert and oriented to person and place. The patient did not participate in the interpretation of proverbs. The patient's behavior is easily agitated and aggressive. Insight into her illness is severely compromised. Judgment is impaired. DIAGNOSTIC IMPRESSION: AXIS I: 1. Psychotic disorder, not otherwise specified. 2. Dementia with behavioral disturbance. AXIS II: Deferred. AXIS III: Per Dr. Cortez. TREATMENT PLAN: The patient has been seen by Dr. Lanza for psychiatric evaluation and for the management of the patient's psychotropic medications. We will provide supportive psychotherapy to include limit setting and de-escalation. We will provide reality orientation, differentiation and integration. We will provide coping strategies for phase of life issues. We will provide cognitive and behavioral redirection. We will provide motivational enhancement for the patient to become compliant and stay compliant with all aspects of her care and treatment. We will encourage the patient to be able to demonstrate emotional and self-regulation prior to discharge. We will also provide stress management to increase the patient's frustration tolerance. DISCHARGE CRITERIA: This should include that the patient is able to demonstrate that she is no longer a threat to self or others. Thank you Dr. Lanza for this consult and the opportunity to participate with you in this patient's care. JOB# [id number] MTDRon
--- NOTE | 2017-10-12 03:14 | Progress Notes ---
DATE: 10/11/2017 SUBJECTIVE: Staff was spoken to. The patient is interviewed. Mood is noted to be irritable. Affect is constricted. Insight and judgment at this time are noted to be still impaired. Impulse control is noted to be poor. Coping skills are also noted to be very poor. The patient is pacing on the unit. The patient is still very confused. No side effects to the medications are noted. ASSESSMENT: The patient is still paranoid and demented. PLAN: To continue the patient with the supportive therapy and followup. JOB# [id number]
[2017-10-12] MEDS: Multivitamin Tab PO SCH (08:42)
[2017-10-12] MEDS: Lactobacillus Rhamnosus GG 15 Billion CFU CAP.SPRINK PO SCH (08:42)
--- NOTE | 2017-10-12 18:07 | Progress Notes ---
DATE: 10/12/2017 SUBJECTIVE: Staff was spoken to. The patient is interviewed. Mood is noted to be anxious. The patient's daughter has been mentioning that the patient has a kind heart to go and help other people and that is being construed as being disruptive and the patient is being closely monitored over here. The patient has been able to comply with the medications so far. The patient, however, is noted to be getting confused towards the end of the day. The patient is currently on 25 mg of the Seroquel and has been able to tolerate the medication. ASSESSMENT: The patient is still confused. PLAN: To continue the patient with the supportive therapy and followup. JOB# [id number]
--- NOTE | 2017-10-12 20:20 | Progress Notes ---
DATE: 10/12/2017 SUBJECTIVE: The patient was seen in her room. The patient appears to be calm, episodes of irritability, tends to be forgetful. Otherwise, the patient appears to be in no acute distress. OBJECTIVE: VITAL SIGNS: Temperature 97, heart rate of 66, respiration 17, blood pressure 107/71, 99% on room air. HEENT: Head is atraumatic and normocephalic. Eyes: Bilateral conjunctivae are clear. Bilateral pupils are equally round and reactive. NECK: Supple. No JVD. CARDIOVASCULAR: S1 and S2, without murmur. PULMONARY: Clear to auscultation. GASTROINTESTINAL: Soft and nontender without guarding. Positive bowel sounds. MUSCULOSKELETAL: No clubbing. No cyanosis noted. ASSESSMENT: 1. Psychosis. 2. Dementia. 3. Hyperlipidemia. 4. Osteoarthritis. PLAN: We will keep the patient inpatient in senior mental health unit. We will follow up with the psychiatrist to monitor the patient's condition and behavior. Treatment plans were discussed with the patient's nurse. Treatment plans were discussed with Dr. Cortez. JOB# [id number]
[2017-10-13] MEDS: Multivitamin Tab PO SCH (09:47)
[2017-10-13] MEDS: Lactobacillus Rhamnosus GG 15 Billion CFU CAP.SPRINK PO SCH (09:47)
--- NOTE | 2017-10-13 13:41 | General Progress Note ---
Subjective - Review of Systems Events since last encounter: episodes of confusion no distress Subjective: awake confused Objective - Results Result Diagrams: 10/08/17 22:50 10/08/17 22:50 Recent Labs: Laboratory Last Values WBC 6.0 Th/cmm (4.8-10.8) 10/08/17 22:50 RBC 4.08 Mil/cmm (3.80-5.20) 10/08/17 22:50 Hgb 12.8 gm/dL (12-16) 10/08/17 22:50 Hct 37.5 % (41.0-60) L 10/08/17 22:50 MCV 91.9 fl (81-100) 10/08/17 22:50 MCH 31.4 pg (27.0-31.0) H 10/08/17 22:50 MCHC Differential 34.1 pg (28.0-36.0) 10/08/17 22:50 RDW 13.0 % (11.5-20.0) 10/08/17 22:50 Plt Count 264 Th/cmm (150-400) 10/08/17 22:50 MPV 6.8 fl 10/08/17 22:50 Neutrophils % 66.1 % (40.0-80.0) 10/08/17 22:50 Lymphocytes % 27.3 % (20.0-50.0) 10/08/17 22:50 Monocytes % 5.5 % (2.0-10.0) 10/08/17 22:50 Eosinophils % 1.0 % (0.0-5.0) 10/08/17 22:50 Basophils % 0.1 % (0.0-2.0) 10/08/17 22:50 Sodium 139 mEq/L (136-145) 10/08/17 22:50 Potassium 3.6 mEq/L (3.5-5.1) 10/08/17 22:50 Chloride 105 mEq/L (98-107) 10/08/17 22:50 Carbon Dioxide 28.5 mEq/L (21.0-31.0) 10/08/17 22:50 Anion Gap 9.1 (7.0-16.0) 10/08/17 22:50 BUN 16 mg/dL (7-25) 10/08/17 22:50 Creatinine 0.7 mg/dL (0.6-1.2) 10/08/17 22:50 Est GFR ( Amer) > 60.0 ml/min (>90) 10/08/17 22:50 Est GFR (Non-Af Amer) > 60.0 ml/min 10/08/17 22:50 BUN/Creatinine Ratio 22.9 10/08/17 22:50 Glucose 96 mg/dL (70-105) 10/08/17 22:50 Calcium 9.5 mg/dL (8.6-10.3) 10/08/17 22:50 Magnesium 2.2 mg/dL (1.9-2.7) 10/08/17 22:50 Total Bilirubin 0.5 mg/dL (0.3-1.0) 10/08/17 22:50 AST 21 U/L (13-39) 10/08/17 22:50 ALT 9 U/L (7-52) 10/08/17 22:50 Alkaline Phosphatase 58 U/L (34-104) 10/08/17 22:50 Troponin I < 0.01 ng/mL (0.01-0.05) L 10/08/17 22:50 B-Natriuretic Peptide 117.0 pg/mL (5.0-100.0) H 10/08/17 22:50 Total Protein 6.4 gm/dL (6.0-8.3) 10/08/17 22:50 Albumin 4.2 gm/dL (3.7-5.3) 10/08/17 22:50 Globulin 2.2 gm/dL 10/08/17 22:50 Albumin/Globulin Ratio 1.9 (1.0-1.8) H 10/08/17 22:50 - Physical Exam Vitals and I&O: Vital Signs Temp 97.8 F 10/13/17 04:42 Pulse 86 10/13/17 08:00 Resp 20 10/13/17 04:42 BP 115/81 10/13/17 04:42 Pulse Ox 91 10/13/17 04:42 Intake & Output 10/12/17 10/13/17 10/13/17 18:59 06:59 18:59 Intake Total 900 240 Balance 900 240 Intake: Oral 900 240 Other: # Voids 1 2 # Bowel Movements 0 Active Medications: Current Medications Acetaminophen (Tylenol) 650 mg PO Q4HR PRN PRN Reason: Mild Pain / Temp above 100 Stop: 12/08/17 02:22 Al Hydrox/Mg Hydrox/Simethicone (Maalox) 30 ml PO Q4HR PRN PRN Reason: GI DISTRESS Stop: 12/08/17 02:22 Ascorbic Acid (Vitamin C) 500 mg PO DAILY [facility]EUS Stop: 12/08/17 08:59 Last Admin: 10/13/17 09:47 Dose: 500 mg Donepezil HCl (Aricept) 10 mg PO HS [facility] Stop: 12/08/17 20:59 Last Admin: 10/12/17 20:54 Dose: 10 mg Lactobacillus Rhamnosus (Culturelle 15b) 1 each PO DAILY [facility] Stop: 12/08/17 08:59 Last Admin: 10/13/17 09:47 Dose: 1 each Lorazepam (Ativan) 0.5 mg PO Q4HR PRN; Protocol PRN Reason: Anxiety/agitation Stop: 11/08/17 02:22 Last Admin: 10/13/17 01:04 Dose: 0.5 mg Magnesium Hydroxide (Milk Of Magnesia) 30 ml PO HS PRN PRN Reason: Constipation Multivitamins/Vitamin C (Theragran) 1 tab PO DAILY [facility]EUS Stop: 12/08/17 08:59 Last Admin: 10/13/17 09:47 Dose: 1 tab Quetiapine Fumarate (Seroquel) 25 mg PO BID [facility]; Protocol Stop: 12/08/17 08:59 Last Admin: 10/13/17 09:47 Dose: 25 mg Sertraline HCl (Zoloft) 50 mg PO DAILY [facility]; Protocol Stop: 12/08/17 08:59 Last Admin: 10/13/17 09:47 Dose: 50 mg Simvastatin (Zocor) 10 mg PO HS [facility]; Protocol Stop: 12/08/17 20:59 Last Admin: 10/12/17 20:54 Dose: 10 mg Zinc Sulfate (Zinc Sulfate) 220 mg PO DAILY [facility]EUS Stop: 12/08/17 08:59 Last Admin: 10/13/17 09:47 Dose: 220 mg Zolpidem Tartrate (Ambien) 5 mg PO HS PRN PRN Reason: Insomnia Stop: 12/08/17 02:22 Last Admin: 10/12/17 20:55 Dose: 5 mg General: Alert, No acute distress HEENT: Atraumatic Neck: Supple Cardiovascular: Regular rate, Normal S1 Lungs: Clear to auscultation Abdomen: Bowel sounds Assessment/Plan - Problem List Patient Problems: All Active Problems Dementia (Acute) F03.90 Hyperlipidemia (Acute) E78.5 Osteoarthritis (Acute) M19.90 Psychosis (Acute) F29 - Assessment Assessment: agitation dementia hypercholesteremia - Plan Plan: as per psych will monitor
--- NOTE | 2017-10-13 21:14 | Progress Notes ---
DATE: 10/13/2017 SUBJECTIVE: Staff was spoken to. The patient is interviewed. Mood is noted to be anxious. Coping skills are noted to be improving at this time. The patient is, however, having the sundowning symptoms and the patient's daughter happened to be there by the bedside and the daughter is mentioning that the previous placement, possibly is not going to be willing to take her back and hence the patient is going to be closely monitored and the case management coordinator is going to be requesting to look for placement for the patient. JOB# [id number]
[2017-10-14] MEDS: Multivitamin Tab PO SCH (10:46)
[2017-10-14] MEDS: Lactobacillus Rhamnosus GG 15 Billion CFU CAP.SPRINK PO SCH (10:46)
--- NOTE | 2017-10-14 16:10 | General Progress Note ---
Subjective - Review of Systems Events since last encounter: no distress Subjective: awake confused Objective - Results Result Diagrams: 10/08/17 22:50 10/08/17 22:50 Recent Labs: Laboratory Last Values WBC 6.0 Th/cmm (4.8-10.8) 10/08/17 22:50 RBC 4.08 Mil/cmm (3.80-5.20) 10/08/17 22:50 Hgb 12.8 gm/dL (12-16) 10/08/17 22:50 Hct 37.5 % (41.0-60) L 10/08/17 22:50 MCV 91.9 fl (81-100) 10/08/17 22:50 MCH 31.4 pg (27.0-31.0) H 10/08/17 22:50 MCHC Differential 34.1 pg (28.0-36.0) 10/08/17 22:50 RDW 13.0 % (11.5-20.0) 10/08/17 22:50 Plt Count 264 Th/cmm (150-400) 10/08/17 22:50 MPV 6.8 fl 10/08/17 22:50 Neutrophils % 66.1 % (40.0-80.0) 10/08/17 22:50 Lymphocytes % 27.3 % (20.0-50.0) 10/08/17 22:50 Monocytes % 5.5 % (2.0-10.0) 10/08/17 22:50 Eosinophils % 1.0 % (0.0-5.0) 10/08/17 22:50 Basophils % 0.1 % (0.0-2.0) 10/08/17 22:50 Sodium 139 mEq/L (136-145) 10/08/17 22:50 Potassium 3.6 mEq/L (3.5-5.1) 10/08/17 22:50 Chloride 105 mEq/L (98-107) 10/08/17 22:50 Carbon Dioxide 28.5 mEq/L (21.0-31.0) 10/08/17 22:50 Anion Gap 9.1 (7.0-16.0) 10/08/17 22:50 BUN 16 mg/dL (7-25) 10/08/17 22:50 Creatinine 0.7 mg/dL (0.6-1.2) 10/08/17 22:50 Est GFR ( Amer) > 60.0 ml/min (>90) 10/08/17 22:50 Est GFR (Non-Af Amer) > 60.0 ml/min 10/08/17 22:50 BUN/Creatinine Ratio 22.9 10/08/17 22:50 Glucose 96 mg/dL (70-105) 10/08/17 22:50 Calcium 9.5 mg/dL (8.6-10.3) 10/08/17 22:50 Magnesium 2.2 mg/dL (1.9-2.7) 10/08/17 22:50 Total Bilirubin 0.5 mg/dL (0.3-1.0) 10/08/17 22:50 AST 21 U/L (13-39) 10/08/17 22:50 ALT 9 U/L (7-52) 10/08/17 22:50 Alkaline Phosphatase 58 U/L (34-104) 10/08/17 22:50 Troponin I < 0.01 ng/mL (0.01-0.05) L 10/08/17 22:50 B-Natriuretic Peptide 117.0 pg/mL (5.0-100.0) H 10/08/17 22:50 Total Protein 6.4 gm/dL (6.0-8.3) 10/08/17 22:50 Albumin 4.2 gm/dL (3.7-5.3) 10/08/17 22:50 Globulin 2.2 gm/dL 10/08/17 22:50 Albumin/Globulin Ratio 1.9 (1.0-1.8) H 10/08/17 22:50 - Physical Exam Vitals and I&O: Vital Signs Temp 99 F 10/14/17 15:19 Pulse 69 10/14/17 15:19 Resp 18 10/14/17 15:19 BP 125/62 10/14/17 15:19 Pulse Ox 99 10/14/17 15:19 Intake & Output 10/13/17 10/14/17 10/14/17 18:59 06:59 18:59 Intake Total 240 Balance 240 Intake: Oral 240 Other: # Voids 2 Active Medications: Current Medications Acetaminophen (Tylenol) 650 mg PO Q4HR PRN PRN Reason: Mild Pain / Temp above 100 Stop: 12/08/17 02:22 Last Admin: 10/14/17 14:16 Dose: 650 mg Al Hydrox/Mg Hydrox/Simethicone (Maalox) 30 ml PO Q4HR PRN PRN Reason: GI DISTRESS Stop: 12/08/17 02:22 Ascorbic Acid (Vitamin C) 500 mg PO DAILY ZEUS Stop: 12/08/17 08:59 Last Admin: 10/14/17 10:46 Dose: 500 mg Donepezil HCl (Aricept) 10 mg PO HS ZEUS Stop: 12/08/17 20:59 Last Admin: 10/13/17 21:22 Dose: 10 mg Lactobacillus Rhamnosus (Culturelle 15b) 1 each PO DAILY ZEUS Stop: 12/08/17 08:59 Last Admin: 10/14/17 10:46 Dose: 1 each Lorazepam (Ativan) 0.5 mg PO Q4HR PRN; Protocol PRN Reason: Anxiety/agitation Stop: 11/08/17 02:22 Last Admin: 10/14/17 14:03 Dose: 0.5 mg Magnesium Hydroxide (Milk Of Magnesia) 30 ml PO HS PRN PRN Reason: Constipation Multivitamins/Vitamin C (Theragran) 1 tab PO DAILY ZEUS Stop: 12/08/17 08:59 Last Admin: 10/14/17 10:46 Dose: 1 tab Quetiapine Fumarate (Seroquel) 25 mg PO BID ZEUS; Protocol Stop: 12/08/17 08:59 Last Admin: 10/14/17 10:46 Dose: 25 mg Sertraline HCl (Zoloft) 50 mg PO DAILY ZEUS; Protocol Stop: 12/08/17 08:59 Last Admin: 10/14/17 10:46 Dose: 50 mg Simvastatin (Zocor) 10 mg PO HS ZEUS; Protocol Stop: 12/08/17 20:59 Last Admin: 10/13/17 21:22 Dose: 10 mg Zinc Sulfate (Zinc Sulfate) 220 mg PO DAILY ZEUS Stop: 12/08/17 08:59 Last Admin: 10/14/17 10:46 Dose: 220 mg Zolpidem Tartrate (Ambien) 5 mg PO HS PRN PRN Reason: Insomnia Stop: 12/08/17 02:22 Last Admin: 10/13/17 21:22 Dose: 5 mg General: Alert, No acute distress HEENT: Atraumatic Neck: Supple Cardiovascular: Regular rate, Normal S1 Lungs: Clear to auscultation Abdomen: Bowel sounds Assessment/Plan - Problem List Patient Problems: All Active Problems Dementia (Acute) F03.90 Hyperlipidemia (Acute) E78.5 Osteoarthritis (Acute) M19.90 Psychosis (Acute) F29 - Assessment Assessment: agitation dementia hypercholesteremia - Plan Plan: as per psych will monitor Nutritional Asmnt/Malnutr-PDOC - Dietary Evaluation Malnutrition Findings (Please click <Entered> for more info): Nutritional Asmnt/Malnutrition Start: 10/14/17 14: 27 Text: Status: Complete Freq: Protocol: Document 10/14/17 14:27 CRISTINA (Rec: 10/14/17 14:33 CRISTINA [email or web address]) Nutritional Asmnt/Malnutrition Patient General Information Nutritional Screening Low Risk Diagnosis psychosis NOS Pertinent Medical Hx/Surgical Hx hyperlipidemia, dementia Subjective Information Pt seen sleeping in bed at time of visit. Per EMR, PO intake 75-100%. Current Diet Order/ Nutrition Support regular Pertinent Medications vit C, culturelle, theragran, seroquel, zinc Pertinent Labs 10/08 nutrition related labs WNL Nutritional Hx/Data Height 1.68 m Height (Calculated Centimeters) 167.6 Current Weight (lbs) 58.967 kg Weight (Calculated Kilograms) 59.0 Weight (Calculated Grams) 35146.0 [place] Body Weight 130 Body Mass Index (BMI) 20.9 Weight Status Approriate GI Symptoms GI Symptoms None Last BM none Difficult in: None Skin Integrity/Comment: intact Current %PO Good (75-100%) Estimated Nutritional Goals BEE in Kcals: Using Current wt Calories/Kcals/Kg 25-30 Kcals Calculated 4207-9438 Protein: Using Current wt Protein g/k Protein Calculated 59 Fluid: ml 1475-1770ml (1ml/kcal) Nutritional Problem No current Nutrition Prob Problem N/A Malnutrition Alert Is there a minimum of two criteria No selected? Query Text:Check all the applicable criteria. A minimum of two criteria are recommended for diagnosis of either severe or non-severe malnutrition. Malnutrition Related to Morbid Obesity Malnutrition related to morbid obesity No Intervention/Recommendation Comments 1. Continue with regular diet as ordered. 2. Monitor PO intake, wt, labs and skin integrity 3. F/U as low risk in 7 days, 10/21 Expected Outcomes/Goals Expected Outcomes/Goals 1. PO intake to meet at least 75% of nutritional needs. 2. Wt stability, skin to remain intact, labs to approach WNL.
--- NOTE | 2017-10-14 22:39 | Progress Notes ---
DATE: 10/14/2017 SUBJECTIVE: Staff was spoke to. The patient is interviewed. Mood is noted to irritable. Affect is constricted. Coping skills are noted to be still poor. The patient has been having difficult time to cope with the stress. The patient is pacing on the unit. The patient is still having short term memory deficits. Long-term memory seems to be fair. The patient is reported to be not accepted at the [facility] and complex case manager is going to be looking for a different place for this patient. JOB# [id number]
[2017-10-15] MEDS: Lactobacillus Rhamnosus GG 15 Billion CFU CAP.SPRINK PO SCH (08:43)
[2017-10-15] MEDS: Multivitamin Tab PO SCH (08:43)
--- NOTE | 2017-10-15 17:35 | Progress Notes ---
DATE: 10/15/2017 SUBJECTIVE: Staff was spoken to. The patient is interviewed. Mood is noted to be anxious. The patient has been confused and has been ____ most of the time. Insight and judgment at this time are noted to be improving. Impulse control seems to be fair. No side effects to the medications are noted. ASSESSMENT: The patient is stabilizing. PLAN: To continue the patient with the current medications and work with the counseling case manager with regards the placement of this patient. JOB# [id number]
[2017-10-16] MEDS: Multivitamin Tab PO SCH (08:19)
[2017-10-16] MEDS: Lactobacillus Rhamnosus GG 15 Billion CFU CAP.SPRINK PO SCH (08:19)
--- NOTE | 2017-10-16 15:27 | General Progress Note ---
Subjective - Review of Systems Events since last encounter: patient anxious denies cp,sob Subjective: awake confused Objective - Results Result Diagrams: 10/08/17 22:50 10/08/17 22:50 Recent Labs: Laboratory Last Values WBC 6.0 Th/cmm (4.8-10.8) 10/08/17 22:50 RBC 4.08 Mil/cmm (3.80-5.20) 10/08/17 22:50 Hgb 12.8 gm/dL (12-16) 10/08/17 22:50 Hct 37.5 % (41.0-60) L 10/08/17 22:50 MCV 91.9 fl (81-100) 10/08/17 22:50 MCH 31.4 pg (27.0-31.0) H 10/08/17 22:50 MCHC Differential 34.1 pg (28.0-36.0) 10/08/17 22:50 RDW 13.0 % (11.5-20.0) 10/08/17 22:50 Plt Count 264 Th/cmm (150-400) 10/08/17 22:50 MPV 6.8 fl 10/08/17 22:50 Neutrophils % 66.1 % (40.0-80.0) 10/08/17 22:50 Lymphocytes % 27.3 % (20.0-50.0) 10/08/17 22:50 Monocytes % 5.5 % (2.0-10.0) 10/08/17 22:50 Eosinophils % 1.0 % (0.0-5.0) 10/08/17 22:50 Basophils % 0.1 % (0.0-2.0) 10/08/17 22:50 Sodium 139 mEq/L (136-145) 10/08/17 22:50 Potassium 3.6 mEq/L (3.5-5.1) 10/08/17 22:50 Chloride 105 mEq/L (98-107) 10/08/17 22:50 Carbon Dioxide 28.5 mEq/L (21.0-31.0) 10/08/17 22:50 Anion Gap 9.1 (7.0-16.0) 10/08/17 22:50 BUN 16 mg/dL (7-25) 10/08/17 22:50 Creatinine 0.7 mg/dL (0.6-1.2) 10/08/17 22:50 Est GFR ( Amer) > 60.0 ml/min (>90) 10/08/17 22:50 Est GFR (Non-Af Amer) > 60.0 ml/min 10/08/17 22:50 BUN/Creatinine Ratio 22.9 10/08/17 22:50 Glucose 96 mg/dL (70-105) 10/08/17 22:50 Calcium 9.5 mg/dL (8.6-10.3) 10/08/17 22:50 Magnesium 2.2 mg/dL (1.9-2.7) 10/08/17 22:50 Total Bilirubin 0.5 mg/dL (0.3-1.0) 10/08/17 22:50 AST 21 U/L (13-39) 10/08/17 22:50 ALT 9 U/L (7-52) 10/08/17 22:50 Alkaline Phosphatase 58 U/L (34-104) 10/08/17 22:50 Troponin I < 0.01 ng/mL (0.01-0.05) L 10/08/17 22:50 B-Natriuretic Peptide 117.0 pg/mL (5.0-100.0) H 10/08/17 22:50 Total Protein 6.4 gm/dL (6.0-8.3) 10/08/17 22:50 Albumin 4.2 gm/dL (3.7-5.3) 10/08/17 22:50 Globulin 2.2 gm/dL 10/08/17 22:50 Albumin/Globulin Ratio 1.9 (1.0-1.8) H 10/08/17 22:50 - Physical Exam Vitals and I&O: Vital Signs Temp 98.4 F 10/15/17 16:04 Pulse 64 10/16/17 06:52 Resp 16 10/15/17 16:04 BP 121/71 10/16/17 06:52 Pulse Ox 99 10/15/17 16:04 Active Medications: Current Medications Acetaminophen (Tylenol) 650 mg PO Q4HR PRN PRN Reason: Mild Pain / Temp above 100 Stop: 12/08/17 02:22 Last Admin: 10/14/17 14:16 Dose: 650 mg Al Hydrox/Mg Hydrox/Simethicone (Maalox) 30 ml PO Q4HR PRN PRN Reason: GI DISTRESS Stop: 12/08/17 02:22 Ascorbic Acid (Vitamin C) 500 mg PO DAILY ZEUS Stop: 12/08/17 08:59 Last Admin: 10/16/17 08:19 Dose: 500 mg Donepezil HCl (Aricept) 10 mg PO HS ZEUS Stop: 12/08/17 20:59 Last Admin: 10/15/17 20:41 Dose: 10 mg Lactobacillus Rhamnosus (Culturelle 15b) 1 each PO DAILY ZEUS Stop: 12/08/17 08:59 Last Admin: 10/16/17 08:19 Dose: 1 each Lorazepam (Ativan) 0.5 mg PO Q4HR PRN; Protocol PRN Reason: Anxiety/agitation Stop: 11/08/17 02:22 Last Admin: 10/14/17 14:03 Dose: 0.5 mg Magnesium Hydroxide (Milk Of Magnesia) 30 ml PO HS PRN PRN Reason: Constipation Multivitamins/Vitamin C (Theragran) 1 tab PO DAILY ZEUS Stop: 12/08/17 08:59 Last Admin: 10/16/17 08:19 Dose: 1 tab Quetiapine Fumarate (Seroquel) 25 mg PO BID [facility]; Protocol Stop: 12/08/17 08:59 Last Admin: 10/16/17 08:19 Dose: 25 mg Sertraline HCl (Zoloft) 50 mg PO DAILY [facility]; Protocol Stop: 12/08/17 08:59 Last Admin: 10/16/17 08:19 Dose: 50 mg Simvastatin (Zocor) 10 mg PO HS ZEUS; Protocol Stop: 12/08/17 20:59 Last Admin: 10/15/17 20:41 Dose: 10 mg Zinc Sulfate (Zinc Sulfate) 220 mg PO DAILY ZEUS Stop: 12/08/17 08:59 Last Admin: 10/16/17 08:20 Dose: 220 mg Zolpidem Tartrate (Ambien) 5 mg PO HS PRN PRN Reason: Insomnia Stop: 12/08/17 02:22 Last Admin: 10/13/17 21:22 Dose: 5 mg General: Alert, No acute distress HEENT: Atraumatic Neck: Supple Cardiovascular: Regular rate, Normal S1 Lungs: Clear to auscultation Abdomen: Bowel sounds Assessment/Plan - Problem List Patient Problems: All Active Problems Dementia (Acute) F03.90 Hyperlipidemia (Acute) E78.5 Osteoarthritis (Acute) M19.90 Psychosis (Acute) F29 - Assessment Assessment: agitation dementia hypercholesteremia - Plan Plan: as per psych will monitor Nutritional Asmnt/Malnutr-PDOC - Dietary Evaluation Malnutrition Findings (Please click <Entered> for more info): Nutritional Asmnt/Malnutrition Start: 10/14/17 14: 27 Text: Status: Complete Freq: Protocol: Document 10/14/17 14:27 LCHENG (Rec: 10/14/17 14:33 LCHENG [email or web address]) Nutritional Asmnt/Malnutrition Patient General Information Nutritional Screening Low Risk Diagnosis psychosis NOS Pertinent Medical Hx/Surgical Hx hyperlipidemia, dementia Subjective Information Pt seen sleeping in bed at time of visit. Per EMR, PO intake 75-100%. Current Diet Order/ Nutrition Support regular Pertinent Medications vit C, culturelle, theragran, seroquel, zinc Pertinent Labs 10/08 nutrition related labs WNL Nutritional Hx/Data Height 1.68 m Height (Calculated Centimeters) 167.6 Current Weight (lbs) 58.967 kg Weight (Calculated Kilograms) 59.0 Weight (Calculated Grams) 83268.0 [place] Body Weight 130 Body Mass Index (BMI) 20.9 Weight Status Approriate GI Symptoms GI Symptoms None Last BM none Difficult in: None Skin Integrity/Comment: intact Current %PO Good (75-100%) Estimated Nutritional Goals BEE in Kcals: Using Current wt Calories/Kcals/Kg 25-30 Kcals Calculated 6156-7292 Protein: Using Current wt Protein g/k Protein Calculated 59 Fluid: ml 1475-1770ml (1ml/kcal) Nutritional Problem No current Nutrition Prob Problem N/A Malnutrition Alert Is there a minimum of two criteria No selected? Query Text:Check all the applicable criteria. A minimum of two criteria are recommended for diagnosis of either severe or non-severe malnutrition. Malnutrition Related to Morbid Obesity Malnutrition related to morbid obesity No Intervention/Recommendation Comments 1. Continue with regular diet as ordered. 2. Monitor PO intake, wt, labs and skin integrity 3. F/U as low risk in 7 days, 10/21 Expected Outcomes/Goals Expected Outcomes/Goals 1. PO intake to meet at least 75% of nutritional needs. 2. Wt stability, skin to remain intact, labs to approach WNL.
--- NOTE | 2017-10-16 22:38 | Progress Notes ---
DATE: 10/16/2017 SUBJECTIVE: Staff was spoken to. The patient is interviewed. Mood is noted to be irritable. Affect is constricted. The patient has been pacing on the unit has problem with her short-term as well as long-term memory. The patient has been asking the same things again and again. The patient, however, has been able to be redirected. No side effects to the medications are noted. ASSESSMENT: The patient is still demented and paranoid. PLAN: To continue the patient with the supportive therapy and followup. JOB# [id number]
[2017-10-17] MEDS: Lactobacillus Rhamnosus GG 15 Billion CFU CAP.SPRINK PO SCH (08:44)
[2017-10-17] MEDS: Multivitamin Tab PO SCH (08:44)
--- NOTE | 2017-10-17 12:21 | General Progress Note ---
Subjective - Review of Systems Events since last encounter: demented paranoid no signs of pain Subjective: awake confused Objective - Results Result Diagrams: 10/08/17 22:50 10/08/17 22:50 Recent Labs: Laboratory Last Values WBC 6.0 Th/cmm (4.8-10.8) 10/08/17 22:50 RBC 4.08 Mil/cmm (3.80-5.20) 10/08/17 22:50 Hgb 12.8 gm/dL (12-16) 10/08/17 22:50 Hct 37.5 % (41.0-60) L 10/08/17 22:50 MCV 91.9 fl (81-100) 10/08/17 22:50 MCH 31.4 pg (27.0-31.0) H 10/08/17 22:50 MCHC Differential 34.1 pg (28.0-36.0) 10/08/17 22:50 RDW 13.0 % (11.5-20.0) 10/08/17 22:50 Plt Count 264 Th/cmm (150-400) 10/08/17 22:50 MPV 6.8 fl 10/08/17 22:50 Neutrophils % 66.1 % (40.0-80.0) 10/08/17 22:50 Lymphocytes % 27.3 % (20.0-50.0) 10/08/17 22:50 Monocytes % 5.5 % (2.0-10.0) 10/08/17 22:50 Eosinophils % 1.0 % (0.0-5.0) 10/08/17 22:50 Basophils % 0.1 % (0.0-2.0) 10/08/17 22:50 Sodium 139 mEq/L (136-145) 10/08/17 22:50 Potassium 3.6 mEq/L (3.5-5.1) 10/08/17 22:50 Chloride 105 mEq/L (98-107) 10/08/17 22:50 Carbon Dioxide 28.5 mEq/L (21.0-31.0) 10/08/17 22:50 Anion Gap 9.1 (7.0-16.0) 10/08/17 22:50 BUN 16 mg/dL (7-25) 10/08/17 22:50 Creatinine 0.7 mg/dL (0.6-1.2) 10/08/17 22:50 Est GFR ( Amer) > 60.0 ml/min (>90) 10/08/17 22:50 Est GFR (Non-Af Amer) > 60.0 ml/min 10/08/17 22:50 BUN/Creatinine Ratio 22.9 10/08/17 22:50 Glucose 96 mg/dL (70-105) 10/08/17 22:50 Calcium 9.5 mg/dL (8.6-10.3) 10/08/17 22:50 Magnesium 2.2 mg/dL (1.9-2.7) 10/08/17 22:50 Total Bilirubin 0.5 mg/dL (0.3-1.0) 10/08/17 22:50 AST 21 U/L (13-39) 10/08/17 22:50 ALT 9 U/L (7-52) 10/08/17 22:50 Alkaline Phosphatase 58 U/L (34-104) 10/08/17 22:50 Troponin I < 0.01 ng/mL (0.01-0.05) L 10/08/17 22:50 B-Natriuretic Peptide 117.0 pg/mL (5.0-100.0) H 10/08/17 22:50 Total Protein 6.4 gm/dL (6.0-8.3) 10/08/17 22:50 Albumin 4.2 gm/dL (3.7-5.3) 10/08/17 22:50 Globulin 2.2 gm/dL 10/08/17 22:50 Albumin/Globulin Ratio 1.9 (1.0-1.8) H 10/08/17 22:50 - Physical Exam Vitals and I&O: Vital Signs Temp 99.6 F 10/16/17 14:00 Pulse 72 10/16/17 16:02 Resp 19 10/16/17 14:00 BP 128/70 10/16/17 16:02 Pulse Ox 99 10/16/17 14:00 Intake & Output 10/16/17 10/17/17 10/17/17 18:59 06:59 18:59 Intake Total 950 Balance 950 Intake: Oral 950 Other: # Voids 3 # Bowel Movements 1 Active Medications: Current Medications Acetaminophen (Tylenol) 650 mg PO Q4HR PRN PRN Reason: Mild Pain / Temp above 100 Stop: 12/08/17 02:22 Last Admin: 10/14/17 14:16 Dose: 650 mg Al Hydrox/Mg Hydrox/Simethicone (Maalox) 30 ml PO Q4HR PRN PRN Reason: GI DISTRESS Stop: 12/08/17 02:22 Ascorbic Acid (Vitamin C) 500 mg PO DAILY ZEUS Stop: 12/08/17 08:59 Last Admin: 10/17/17 08:44 Dose: 500 mg Donepezil HCl (Aricept) 10 mg PO HS ZEUS Stop: 12/08/17 20:59 Last Admin: 10/16/17 21:05 Dose: 10 mg Lactobacillus Rhamnosus (Culturelle 15b) 1 each PO DAILY ZEUS Stop: 12/08/17 08:59 Last Admin: 10/17/17 08:44 Dose: 1 each Lorazepam (Ativan) 0.5 mg PO Q4HR PRN; Protocol PRN Reason: Anxiety/agitation Stop: 11/08/17 02:22 Last Admin: 10/14/17 14:03 Dose: 0.5 mg Magnesium Hydroxide (Milk Of Magnesia) 30 ml PO HS PRN PRN Reason: Constipation Multivitamins/Vitamin C (Theragran) 1 tab PO DAILY ZEUS Stop: 12/08/17 08:59 Last Admin: 10/17/17 08:44 Dose: 1 tab Quetiapine Fumarate (Seroquel) 25 mg PO BID ZEUS; Protocol Stop: 12/08/17 08:59 Last Admin: 10/17/17 08:44 Dose: 25 mg Sertraline HCl (Zoloft) 50 mg PO DAILY ZEUS; Protocol Stop: 12/08/17 08:59 Last Admin: 10/17/17 08:45 Dose: 50 mg Simvastatin (Zocor) 10 mg PO HS ZEUS; Protocol Stop: 12/08/17 20:59 Last Admin: 10/16/17 21:05 Dose: 10 mg Zinc Sulfate (Zinc Sulfate) 220 mg PO DAILY ZEUS Stop: 12/08/17 08:59 Last Admin: 10/17/17 08:44 Dose: 220 mg Zolpidem Tartrate (Ambien) 5 mg PO HS PRN PRN Reason: Insomnia Stop: 12/08/17 02:22 Last Admin: 10/16/17 21:05 Dose: 5 mg General: Alert, No acute distress HEENT: Atraumatic Neck: Supple Cardiovascular: Regular rate, Normal S1 Lungs: Clear to auscultation Abdomen: Bowel sounds Assessment/Plan - Problem List Patient Problems: All Active Problems Dementia (Acute) F03.90 Hyperlipidemia (Acute) E78.5 Osteoarthritis (Acute) M19.90 Psychosis (Acute) F29 - Assessment Assessment: agitation dementia hypercholesteremia - Plan Plan: as per psych will monitor Nutritional Asmnt/Malnutr-PDOC - Dietary Evaluation Malnutrition Findings (Please click <Entered> for more info): Nutritional Asmnt/Malnutrition Start: 10/14/17 14: 27 Text: Status: Complete Freq: Protocol: Document 10/14/17 14:27 CRISTINA (Rec: 10/14/17 14:33 HARRIETTG [email or web address]) Nutritional Asmnt/Malnutrition Patient General Information Nutritional Screening Low Risk Diagnosis psychosis NOS Pertinent Medical Hx/Surgical Hx hyperlipidemia, dementia Subjective Information Pt seen sleeping in bed at time of visit. Per EMR, PO intake 75-100%. Current Diet Order/ Nutrition Support regular Pertinent Medications vit C, culturelle, theragran, seroquel, zinc Pertinent Labs 10/08 nutrition related labs WNL Nutritional Hx/Data Height 1.68 m Height (Calculated Centimeters) 167.6 Current Weight (lbs) 58.967 kg Weight (Calculated Kilograms) 59.0 Weight (Calculated Grams) 93695.0 [place] Body Weight 130 Body Mass Index (BMI) 20.9 Weight Status Approriate GI Symptoms GI Symptoms None Last BM none Difficult in: None Skin Integrity/Comment: intact Current %PO Good (75-100%) Estimated Nutritional Goals BEE in Kcals: Using Current wt Calories/Kcals/Kg 25-30 Kcals Calculated 6554-0092 Protein: Using Current wt Protein g/k Protein Calculated 59 Fluid: ml 1475-1770ml (1ml/kcal) Nutritional Problem No current Nutrition Prob Problem N/A Malnutrition Alert Is there a minimum of two criteria No selected? Query Text:Check all the applicable criteria. A minimum of two criteria are recommended for diagnosis of either severe or non-severe malnutrition. Malnutrition Related to Morbid Obesity Malnutrition related to morbid obesity No Intervention/Recommendation Comments 1. Continue with regular diet as ordered. 2. Monitor PO intake, wt, labs and skin integrity 3. F/U as low risk in 7 days, 10/21 Expected Outcomes/Goals Expected Outcomes/Goals 1. PO intake to meet at least 75% of nutritional needs. 2. Wt stability, skin to remain intact, labs to approach WNL.
--- NOTE | 2017-10-17 21:22 | Progress Notes ---
DATE: 10/17/2017 SUBJECTIVE: Staff was spoken to. The patient is interviewed. The patient is less aggressive. The patient's family has been trying to look for places close by and the patient's daughter wants her to be somewhere in [place] and hence the pillowcase folder have been calling the [place] [facility] to see if the patient is going to be accepted over there. ASSESSMENT: The patient's psychosis, resolving and awaiting placement. PLAN: To continue the patient with the supportive therapy and followup. JOB# [id number]
[2017-10-18] MEDS: Multivitamin Tab PO SCH (09:52)
[2017-10-18] MEDS: Lactobacillus Rhamnosus GG 15 Billion CFU CAP.SPRINK PO SCH (09:52)
--- NOTE | 2017-10-18 23:05 | Discharge Summary ---
DATE OF DISCHARGE: 10/18/2017 IDENTIFYING DATA: The patient is a 67-year-old woman, [facility]. JUSTIFICATION OF HOSPITALIZATION: The patient is admitted for her confusion and aggressive behavior. CHIEF COMPLAINT: "I don't know." DIAGNOSES AT THE TIME OF ADMISSION: AXIS I: Psychotic disorder, not otherwise specified. IB. Dementia and behavioral change secondary to dementia. AXIS II: None. AXIS III: As per Dr. Cortez. HISTORY OF PRESENT ILLNESS: Please refer to the 10/09/2017 done by me. Physical examination was done by Dr. Cortez and is noted to be within normal limits. Lab studies of the hospitalization have been reviewed by Dr. Cortez and they are noted to be within normal limits. HOSPITAL COURSE AND RESPONSE TO TREATMENT: The patient has been observed on inpatient unit, provided with supportive psychotherapy. The patient has been continued on Aricept, Namenda and Seroquel was given 25 mg b.i.d. and sertraline has been given 50 mg in the morning. With these medications, the patient was observed and was noted to be doing fairly well and the patient was finally discharged to [facility]. MENTAL STATUS EXAMINATION: At the time of the discharge, the patient noted to be anxious. Affect is appropriate. Not suicidal or homicidal. Insight and judgment are noted to be fair. Impulse control is also noted to be fair. No side effects to the medications are noted at the time of discharge. CONDITION: At the time of discharge noted to be stable. DIAGNOSES AT THE TIME OF DISCHARGE: AXIS I: Psychotic disorder, not otherwise specified. 1B. Dementia and behavioral change, secondary trait. AXIS II: None. AXIS III: As per Dr. Cortez. AFTERCARE PLAN: The [facility] was [facility] to be followed up on an outpatient basis. JOB# [id number]
== END 2017-10-18 13:45 | DRG 885 ==
LOC: ER 22:08 → GERO2 10-09 00:05
PROVIDERS: ADMIT Psychiatry & Neurology Psychiatry; ATTEND Psychiatry & Neurology Psychiatry
DX: F23 Brief psychotic disorder (principal); F03.91 Unspecified dementia, unspecified severity, with behavioral disturbance; E78.5 Hyperlipidemia, unspecified; F32.9 Major depressive disorder, single episode, unspecified; M19.90 Unspecified osteoarthritis, unspecified site; E78.00 Pure hypercholesterolemia, unspecified
CPT/HCPCS: 36415-UA; 71045-TC; 80053-TC; 83735-TC; 83880-TC; 84484-TC; 85025-TC; 93005; Z7610